=== PATIENT | male | born 1995 | race Caucasian/White ===

== ENCOUNTER 2022-03-21 12:20 | Emergency (ER) | payer SELFPAY ==
[2022-03-21 12:47] VITALS: BP 103/67; PULSE 82; TEMP 97.9; BMI 30.7
== END 2022-03-21 13:44 | disposition home or self-care (01) ==
LOC: JER 12:20 → JERFT 12:20
DX: K62.89 Other specified diseases of anus and rectum (principal)
CPT/HCPCS: 99281-25